=== PATIENT | male | born 1990 | race Caucasian/White ===

== ENCOUNTER 2020-08-03 11:11 | Observation (INO) | payer BC, SELFPAY ==
[2020-08-03] VITALS (12 sets, daily range): BP systolic 114–158; BP diastolic 62–103; PULSE 77–112; RESP 16–18; TEMP 36.5–37.7; O2SAT 92–99; BMI 35.7
[2020-08-03] MEDS: Lactated Ringers 1,000 ML 100 ML IV ×3 (06:48→14:35)
--- NOTE | 2020-08-03 07:37 | RAD_ITS ---
STUDY: X-RAY - LEFT ANKLE REASON FOR EXAM: Male, 30 years old. GASTROCNEMIUS RECESSION, SUBTALAR JOINT FUSION TECHNIQUE: 3 view(s) of the ankle. COMPARISON: None. FINDINGS: Intraoperative imaging provided for gastrocnemius recession and subtalar joint fusion. RAD/Ankle min 3 Views IMPRESSION: Intraoperative imaging provided for gastrocnemius recession and subtalar joint fusion. Electronically Signed: Jesus Ortega, at 12:39 EDT , Service support ,
[2020-08-03] MEDS: Cefazolin 2 GM in 0.9% Normal Saline 100 ML IV ×3 (07:44→21:00)
--- NOTE | 2020-08-03 11:20 | HP.PCM_ITS ---
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 The patient is a 30 year old M with past medical history of seasonal allergies and hypertension who suffers continued pain in his left foot and ankle with acti vity. Patient has been following up with me in the office 4 months to help control this pain. Multiple imaging studies were performed, revealing significant osteoarthritis in the area of his subtalar joints. This is where the chief complaint is. Painful range of motion of the subtalar joint on the left lower extremity was had with restricted motion. Fluid motion of the right subtalar joint with no pain is present. Multiple conservative therapies were employed and failed, including use of supportive inserts, change in shoe gear, cortisone injections, physical therapy, oral medications. The conservative therapies that were initiated failed. Patient has attempted to go on vacation with his family along with hiking, and was unable to perform the activities that he desired due to the pain. After multiple discussions were had with the patient, along with the patient performing his own research, it was decided that a left subtalar joint fusion along with a left gastrocnemius recession would be performed. Surgery was performed today, August 03, 2020. Patient will be admitted for observation status for pain control and to aid in his recovery. [] Past Medical History Past Medical History (Chronic Problems): Chronic Problems (Last Updated 08/03/20 @ 11:[address] Kendrick Hamm DPM) Primary osteoarthritis, left ankle and foot (Chronic) Acquired deformity of left ankle and foot (Chronic) Medical History: Medical History (Last Updated 08/03/20 @ 11:[address] Kendrick Hamm DPM) Arthritis M19.90 Psoriasis L40.9 Seasonal allergies J30.2 Hypertension I10 Allergies No Known Allergies Allergy (Verified 08/03/20 06:35) Home Medications: Ambulatory Orders Medication Instructions Recorded Loratadine [Claritin] 10 mg PO DAILY 07/20/20 Losartan/Hydrochlorothiazide 1 ea PO DAILY 07/20/20 [Losartan-Hctz 100-25 mg Tab] Surgical History: no surgical history Psychiatric History: No pertinent psych hx Lives: With Family Smoking Status: Former smoker Tobacco Use: Non-smoker Alcohol: Occasional Drugs: None Review of Systems Constitutional: Denies: Anorexia, Chills, Fever, Night Sweats Eyes: Denies: Blurred vision, Cataracts, Conjunctivae Inflammation HEENT: Denies: Difficulty Hearing, Difficulty Swallowing, Dysphasia, Ear Pain, Eye Pain, Hard of Hearing Cardiovascular: Denies: Chest Pain, Claudication, Chest Pressure, Chest Tightness Respiratory: Denies: Cough, Hemoptysis, Pleuritic Pain, Shortness of Breath, Shortness of breath at rest, Shortness of breath upon exertion Gastrointestinal: Denies: Abdominal Pain, Constipation, Diarrhea, Dyspepsia Genitourinary: Denies: Dysuria, Frequency, Hematuria Musculoskeletal: Reports: Foot Pain - left foot pain during activities Skin: Denies: Dryness, Jaundice Neurological: Denies: Balance problems, Blurred vision, Double vision Psychiatric: Denies: Anxiety, Depression Endocrine: Denies: Change in Body Habitus, Heat/ Cold Intolerance, Polydipsia, Polyuria Hematologic/ Lymphatic: Denies: Adenopathy, Anemia, Easy Bruising, Easy Bleeding VTE Information - Inpt Only VTE Present on Admission: No VTE Mechan Device Prophylaxis: SCD's VTE Pharm Prophylaxis ordered?: Yes Subjective: Patient seen at bedside postoperatively. Patient mitts to pain of his left foot, but is well controlled. Patient denies any other acute complaints at this time. Currently, patient denies fever, chills, nausea, vomiting, shortness of breath, chest pain. Patient denies left calf pain. Objective: Lower extremity physical exam: Focused on the left lower extremity, reveals a dressing that is clean, dry, intact the left lower extremity. Vascular: Capillary fill time is less than 3 seconds to all digits of the left foot. Temperature gradient is within normal limits of the left lower extremity. Neurological exam: Gross and protective sensation are intact to the left lower extremity this time Musculoskeletal: Muscle strength is deferred at this time. Foot and ankle appear in a rectus position underneath the tibia at this time. Dermatological exam: Deferred at this time. No evidence of open lesions noted in areas that is not covered with a dressing. - Physical Exam Vitals/I&O's: Vital Signs Temp Pulse Resp BP Pulse Ox 99.7 F H 91 16 158/97 H 97 08/03/20 06:43 08/03/20 06:43 08/03/20 06:43 08/03/20 06:43 08/03/20 06:43 Oxygen Delivery Method Room Air Weight: 113 kg Body Mass Index (BMI) 35.7 Intake and Output for Last 24 Hours 08/01/20 08/02/20 08/03/20 23:59 23:59 23:59 Intake Total 110 / 110 Balance 110 / 110 General: Oriented x3, Cooperative, No apparent distress HEENT: Atraumatic, PERRLA Oral: Moist Mucosa, No Gingival or Mucosal Lesions/ Ulcerations Neck: Supple, No JVD Lungs: Clear to auscultation, Normal air movement, No rhonchi, No wheeze, No rales Cardiovascular: Regular rate, Regular Rhythm, Normal S1, Normal S2 Abdomen: Bowel Sounds Present, Soft, Non Tender, Non-Distended Extremities: No clubbing, No cyanosis, Capillary Refill Less than 3 Seconds, No Calf Tenderness, Peripheral Pulses Normal Musculoskeletal: No Tenderness to Palpation of Joints or Extremities Neurological: Sensory exam intact to light touch and pain Psych/Mental Status: Alert and oriented to time, place, person, mood and affect Current Medications Lactated Ringer's () 1,000 mls @ 100 mls/hr IV .Q10H JANETTE Last Admin: 08/03/20 06:48 Dose: 100 mls/hr Documented by: Assessment/Plan Assessment: This is a 30-year-old male who had significant ambulatory difficulty and pain secondary to osteoarthritis who is status post a left lower extremity gastrocnemius recession and left subtalar joint fusion. Plan: Patient chart reviewed and patient evaluated. Full discussion had with that with the patient about the patient's current clinical condition. At this time, I discussed with the patient that would like to admit him to observational status to make sure that he has his pain well controlled and to aid in his recovery. Patient was agreeable to this. Patient will be admitted to the med-surg floor and will be started on pain medication to aid in his recovery. Broad-spectrum antibiotics will be continued at this time to decrease the chance of infection. DVT prophylaxis was ordered, to begin tomorrow, August 04. Patient is normal pain medication was started. A diet was given to the patient. Patient is to remain nonweightbearing to the left lower extremity at this time with assistive devices. Patient is to keep the dressing clean, dry, intact to the left lower extremity. It is important that the patient elevates his left foot above the level of heart at all times. It is important that the patient ice around his left knee 30 minutes every hour to help control his pain. I will assess the patient once again tomorrow morning. If patient feels that he is able to go home and his pain is well controlled, will discharge patient. Patient is postoperative prescriptions were already given to him and he has them filled waiting for him at home. Patient at home normal prescriptions were restarted as well. Procedure Criteria Procedure Type: Elective COVID Risk Discussion: The surgeon/proceduralist and patient have discussed in detail the risk of exposure to and/or potential harm posed by the COVID-19 virus with having a surgery/procedure at this time versus the risk of delaying the surgery/procedure. It is not possible to know either the risk of delaying the surgery or procedure or chance of getting an infection with perfect accuracy, but a joint decision was made between the patient and the surgeon/proceduralist to proceed at this time with the scheduled surgery/procedure as indicated on the consent form. OBSV E&M: 39112 Initial observation care L2
[2020-08-03] MEDS: Bupivacaine Mpf 0.5% 30 ML VIAL (11:28)
--- NOTE | 2020-08-03 11:34 | OP.PCM_ITS ---
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 Left foot and ankle primary osteoarthritis. 2. Left foot acquired foot deformity. 3. Left short and Achilles tendon Post-Operative Diagnosis: Same as preoperative Surgery/Procedure Performed:: 1. Left subtalar joint fusion. 2. Left gastrocnemius recession. 3. Left foot application of bone graft Description of Surgical Findings:: Consistent with diagnosis. Increase in the dorsiflexor component noted of the left foot at the level of the ankle joint status post gastrocnemius recession. Compression of the joint space had with the foot placed in approximately 5 degrees valgus after internal fixation was placed. Internal fixation held the foot in the corrected reduced position. solar mechanical engineer: Ana Garcia NP Type of Anesthesia:: General/Regional - with a popliteal block given to the left lower extremity Anesthesiologist: Sukumar Mcfadden Special Medications: 2 grams of ancef given pre-operatively Specimen's removed: None Drains: None Estimated Blood Loss (mL): 50mL Description of Procedure: Hemostasis: Pneumatic thigh tourniquet placed to the level of the left thigh at 300 mmHg for 14 minutes. This was deflated for a period of over 20 minutes. This was then reinflated at the level of the left thigh at 250 mmHg for 120 minutes. Materials: #1. Size 2-0 Vicryl. 2. Size 3-0 Vicryl. 4. Size 3-0 nylon. 5. Size 2-0 nylon. 6. Lizbeth 6.5 x 85 mm partially-threaded cannulated screw. 7. Waycross 6.5 x 90 mm partially-threaded cannulated screw. 8. Lizbeth Vitoss Injectables: 5 mL of 0.5 the Marcaine plain given in a proximal saphenous nerve block fashion postoperatively Complications: None Condition: Stable Indications: Patient is a 30-year-old male with past medical history significant of arthritis, hypertension, psoriasis, who was suffering significant left foot and ankle pain for years . Patient has been following up with me for months to help him alleviate his symptoms. Multiple conservative therapies were employed, including but not limited to cortisone injections, supportive inserts, change in shoe gear, physical therapy. All of these conservative measures failed. Patient attempted to go on multiple vacations with his family, but was not able to participate in the activities due to the pain that was present. Patient states that this is limiting his activities of daily living, and wanted to discuss further options. Multiple imaging studies were performed, including x-rays and MRI. This revealed significant arthritis in the subtalar joint. Clinical examination revealed a significant restriction of the subtalar joint on the left side when compared to the contralateral side. Furthermore, inversion and eversion of the left subtalar joint was painful. There is limitation of movement on the left subtalar joint when compared to the contralateral side. Advanced imaging did not reveal a tarsal coalition. Furthermore, patient did have a short Achilles tendon, likely aiding in his symptoms. I discussed with the patient the surgical intervention at that time, including a gastrocnemius recession to help lengthen the posterior musculature along with a subtalar joint fusion. I discussed the risks and benefits of surgical intervention, including but not limited to delayed or nonhealing wounds, delayed or nonhealing bone, DVT, infection, decreased function of limb, continued pain, continued limitation activities, loss of limb, loss of life. All the patient's questions were answered to his satisfaction and all of his concerns were addressed. No guarantees were made as to the outcome of the procedure. Patient understood all aspects of the procedure, and wanted to proceed with the proposed surgical intervention for today, August 03, 2020. Operative report: Before the patient was brought into the operating room, the risks, benefits, possible outcomes, possible complications of the procedure were discussed with the patient once again. These include but not limited to delayed or nonhealing wounds, delayed or nonhealing bone, DVT, infection, decreased function of limb, continued pain, continued limitation activities, loss of limb, loss of life. All the patient's questions were answered to his satisfaction and all of his concerns were addressed. No guarantees were made as to the outcome of the procedure. Patient understood all aspects of the procedure, and consent was then signed by the patient. Patient was then brought into the operating room and placed on the operating table in a supine position. After timeout, general anesthesia was obtained, and anesthesia took control of the airway and the IV access. Adequate padding was placed in all pressure points. An ipsilateral hip bump was placed. The contralateral limb was taped to the bed. Next, a well- padded pneumatic thigh tourniquet was placed at the level of left thigh. Next the anesthesiologist administered a popliteal block to the left lower extremity. At this time the left foot, ankle, leg were then scrubbed, prepped, draped in the usual sterile manner. Elevation of the left lower extremity was followed by exsanguination via Esmarch and inflation of the pneumatic thigh tourniquet to 300 mmHg. At this time, the Silverskiold test was performed with the knee extended and the knee flexed. Decreased in the dorsiflexory component was noted, and the equinus deformity was confirmed of the left lower extremity. Attention was then directed to the posterior aspect of the left leg and the area of the gastrocnemius muscle belly. At this time, the inferior border of the medial gastrocnemius head was palpated and marked. A distance of 3 cm distal to this inferior border of the medial head was measured. A marking was made at the midline of the posterior leg in the area of the 3 cm distal to the medial gastrocnemius head. At this time, a #15 blade was used to perform a linear longitudinal incision starting at this 3 cm marking extending distally approximately 3 cm. This was linear in fashion. This incision was deepened utilizing blunt dissection. Care was taken to retract all vital neural and vascular structures. All bleeders were cauterized and ligated as necessary. Next, the sural nerve along with the small saphenous vein were identified, protected, and retracted. At this time, the gastrocnemius aponeurosis was identified. Next, a tongue in groove gastrocnemius recession was performed with the base of the tongue proximally and the tip of the tongue distally. The central band containing the tongue was approximately one third the entire width of the gastrocnemius aponeurosis. Care was taken to make sure that the foot was held in a forced dorsiflexed position as the gastrocnemius recession was performed. The distal portion of the tongue was then reapproximated and coapted to the distal gastrocnemius aponeurosis utilizing size 3-0 Vicryl. The Silverskiold test was then performed again, revealing a significant increase in the dorsiflexor component of the foot at the level of the ankle with the knee extended and the knee flexed. At this time, the deeper subcutaneous tissues were reapproximated and coapted utilizing size 2-0 Vicryl. Next, the pneumatic thigh tourniquet was then released and a prompt hyperemic response noted to the entirety of the left lower extremity. All bleeders were cauterized and ligated as necessary. The subcutaneous tissues were then reapproximated and coapted utilizing size 3-0 Vicryl. The skin was reapproximated coapted utilizing size 3-0 nylon in a simple interrupted and horizontal mattress fashion. At this time, radiographic evaluation was performed to determine the inferior aspect of the fibula and the distal tip of the lateral malleolus, lateral aspect of the subtalar joint, and base of the fourth metatarsal. These were then marked on the patient. Next, elevation of the left lower extremity was followed by exsanguination via Esmarch and inflation of the pneumatic thigh tourniquet was performed to 250 mmHg. Attention was then directed back to the lateral aspect of the left subtalar joint. At this time, a curvy linear incision was made starting 1 cm distal to the posterior inferior aspect of the lateral malleolus extending distally to an area just proximal to the base of the fourth metatarsal. This incision was approximately 8 cm in length and was performed in the lateral aspect of the subtalar joint. This incision was deepened utilizing sharp and blunt dissection. Care was taken to retract all vital neural and vascular structures. All bleeders were cauterized and ligated as necessary. The sural nerve was identified and retracted. At this time, a linear incision was made through the peroneal tendon sheath and in way to protect the peroneal tendons. The peroneal tendons were then retracted inferiorly. Next, the extensor digitorum brevis muscle belly was identified at its origin and sharply reflected superiorly. Next, a 15 blade was used to incise the lateral aspect of the subtalar joint capsule. The calcaneal fibular ligament was identified, retracted and protected. At this time, visual inspection was then performed of the subtalar joint in question. The talocalcaneal ligaments that were present were sharply incised. Significant degenerative joint disease was noted in the posterior facet of the calcaneus and the posterior facet of the talus. Next, a Hinterman retractor was used to distract the joint. At this time, curettes, osteotomes, and rongeurs were used to resect the cartilage on the posterior and middle facets of both the talus and the calcaneus at the subtalar joint. Care was taken to make sure that adequate resection of the cartilage was had, while keeping the subchondral bone intact. Once adequate resection of the cartilage was performed, the surgical site was irrigated with copious amounts of normal sterile saline. Next, visual inspection was then performed of the joint again, and it was determined that adequate resection was had. At this time, an osteotome with a mallet was used to fish scale the subtalar joint and the posterior and middle facets of the calcaneus and the talus. Next, a 2.5 drill bit was used to perform subchondral drilling in these joints. Once adequate preparation of the subtalar joint was had, the Waycross Vitoss was prepared in normal sterile saline and placed into the subtalar joint to aid in the fusion of this joint. At this time, with the subtalar joint held in a 5 degrees valgus position, the K wires for the Waycross cannulated screws were placed from the posterior inferior aspect of the calcaneus extending superiorly and anteriorly into the talar body and talar neck. 2 K wires were inserted in this fashion. Care was taken make sure that these 2 K wires were not perfectly parallel to aid in multiple points and multiple angles of compression. Multiple radiographic views were performed to determine the positioning of the K wires, including lateral ankle, AP ankle, oblique ankle, and calcaneal axial views. The K wires are noted to be well contained within the calcaneus and the talus, and did not penetrate any of the medial and lateral cortices of these bones. Furthermore, the K wires were not noted to penetrate into the ankle joint. Once adequate positioning of these K wires were performed, the skin at the level of where the K wires were inserted was incised via a #15 blade. Blunt dissection was continued down deep to the level of the calcaneus. Next, adequate drilling was performed in standard fashion of these K wires. These K wires were then measured, and a Lizbeth 6.5 x 90 mm and Lizbeth 6.5 x 85 mm were placed over the K wires and inserted in standard AO fixation. Of note during insertion of the screws was the adequate compression of the subtalar joint. Furthermore, care was taken make sure that the subtalar joint was held in this 5 degrees valgus position as the screws were fully inserted. Once her screws were fully inserted, and adequate compression was had the subtalar joint, all temporary fixation was then removed. Radiographic evaluation was then performed. The screws noted to be well contained within the body of the talus and the body of the calcaneus. Furthermore, the screws are noted to either be too long or too short. The screws noted to hold the subtalar joint in the correct the reduced position. They did not penetrate any of the medial or lateral cortices. The screw heads were noted to not be too prominent and were in an area that avoided the weightbearing surface of the calcaneus. The lateral and the posterior surgical site of the foot were then irrigated with copious amounts normal sterile saline. The posterior inferior calcaneal surgical site at the area of the insertion of the screws was reapproximated and coapted with a size 2-0 Vicryl for the subcutaneous tissue and a size 2-0 nylon for the skin in a simple interrupted fashion. At this time, the pneumatic thigh tourniquet was then released, and a prompt hyperemic response noted the entirety of the left lower extremity. All bleeders were cauterized and ligated as necessary of the lateral surgical site. The peroneal tendon sheath along with the origin of the extensor digitorum brevis muscle belly was reapproximated and coapted utilizing size 2-0 Vicryl. The subcutaneous tissues were reapproximated coapted of his lateral surgical site via 2-0 Vicryl and 3-0 Vicryl. The skin was reapproximated and coapted utilizing size 3-0 nylon in a simple interrupted and horizontal mattress fashion. Next, 5 mL of 0.5 some Marcaine plain was distributed a proximal saphenous nerve block fashion in the area of the tibial tuberosity. Each surgical site was then dressed with Betadine soaked gauze, and a dry sterile dressing consisting of 4 x 4 gauze, ABD pads, wrapped with Kerlix. The left foot and ankle were then wrapped with an Theo bandage. Next, a stockinette was placed over the left lower extremity. Cast padding was wrapped from the metatarsal heads extending proximally to a level just distal to the tibial tuberosity. A posterior splint was fashioned to the left lower extremity and was adhered to the left lower extremity utilizing Theo bandages. Care was taken to make sure that the foot and ankle were held in a slightly dorsiflexed and slightly everted position as the posterior splint dried to decrease the chance of scarring of the gastrocnemius recession and decrease the tension on the lateral surgical site. Neurovascular status was assessed at the end of the application and deemed intact to the left lower extremity. The patient tolerated the anesthesia and the procedure well and was transported to the PACU with vital signs stable and neurovascular status intact to the left lower extremity. After period of postoperative monitoring, patient will be admitted for observation for pain control with likely discharge tomorrow, August 04, 2020. The surgical endoscopist, the nurse practitioner, was utilized throughout the entire procedure. She helped with patient positioning, holding of limb, holding retractors. She helped with exposure throughout. She helped with bandage application, and cast application. Without the surgical endoscopist, surgical time would have been increased and surgical outcome could have been less optimal. - Complications None - Admit VTE Documentation VTE Present on Admission: No VTE Mechan Device Prophylaxis: SCD's VTE Pharm Prophylaxis ordered?: Yes
--- NOTE | 2020-08-03 11:54 | RAD_ITS ---
STUDY: X-RAY - LEFT ANKLE REASON FOR EXAM: Male, 30 years old. POST OP, GASTROCNEMIUS RECESSION, SUBTALAR JOINT FUSION TECHNIQUE: 3 view(s) of the ankle. COMPARISON: Comparison is made with prior study done earlier today. FINDINGS: There is evidence of fusion of the subtalar joint utilizing 2 metallic screws. RAD/Ankle min 3 Views IMPRESSION: Subtalar joint fusion. Electronically Signed: Jesus Ortega, at 12:39 EDT , Service support ,
--- NOTE | 2020-08-03 12:08 | PCM.DC.ORTHO ---
Discharge Diet: No Restrictions Discharge Activity: May Not Drive, May Not Shower, Use Walker, Use Crutches Weight Bearing Status: No weight bearing Keep extremity elevated above heart level: Left Leg Additional Activity Instructions:: 1. Keep dressing to left leg clean, dry, intact. Do not get dressing wet. Do not remove dressing. If get dressing wet, call office for further instructions. I recommend sponge bathing at this time to avoid getting dressing wet. 2. Ice around the left knee 20 minutes on, 20 minutes off, every hour while awake until follow-up appointment. 3. Elevate left foot above level of heart as often as possible until further instructed. 4. No walking, standing, placing any weight or pressure on left foot. Use walker/crutches/knee scooter for assistance. 5. Begin taking doxycycline (antibiotic) twice a day as instructed on August 04, 2020. This medication must be taken. 6. Begin taking aspirin once a day as instructed beginning August 04, 2020. This medication must be taken. 7. Begin taking oxycodone/acetaminophen (percocet, pain medication) as needed. You can supplement this medication with extra strength Tylenol as needed. You are to not exceed 3000 mg of Tylenol in a 24-hour period. #8. Follow-up in the office in 1 week as scheduled. Call your doctor if your incision/area has: Sudden Increased Bleeding, Increased Pain/ Swelling Call your doctor if you observe: Fever of 101 or Higher, Coldness, Increased Pain, Inability to have a bowel movement, Shortness of breath, Chest pain, Increased palpitations (irregular heartbeat), Calf discomfort, Uncontrolled pain Cleanse incision/area with: Keep Dressing Clean & Dry Allergies/Adverse Reactions: Allergies No Known Allergies Allergy (Verified 08/03/20 06:35) Medications to take at Discharge Loratadine [Claritin] 10 mg PO DAILY 07/20/20 Losartan/Hydrochlorothiazide [Losartan-Hctz 100-25 mg Tab] 1 ea PO DAILY 07/20/20 Primary Care Physician: Magalys Fernández NP, PROFESSOR OF RADIOLOGY-C [Primary Care Provider] - Test Results: Test results from this visit will be discussed in further detail at your follow-up appointment, if applicable. Please Follow Up With: Kendrick Hamm DPM When: on 08/09/2020 in [facility] Proposed Discharge Date: 08/04/20
[2020-08-04 01:22] VITALS: BP 126/72; PULSE 78; RESP 17; TEMP 36.8; O2SAT 98
[2020-08-04] MEDS: Lactated Ringers 1,000 ML 100 ML IV (02:24)
[2020-08-04] MEDS: Enoxaparin 40 MG/0.4 ML Syringe SC (05:41)
[2020-08-04] MEDS: Cefazolin 2 GM in 0.9% Normal Saline 100 ML IV (05:41)
[2020-08-04 05:45] VITALS: BP 126/84; PULSE 75; RESP 16; TEMP 36.9; O2SAT 99
[2020-08-04] MEDS: HYDROcodone Bitartrate/Apap 5/325 Tablet PO (07:10)
--- NOTE | 2020-08-04 07:35 | PCM.DC.SUM ---
Discharge Date and Diagnosis Date of Admission: 08/03/20 Date of Discharge: 08/04/20 - Secondary Discharge Diagnosis Chronic Problems: Chronic Problems (Last Updated 08/03/20 @ 11:[address] 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 POST OP, GASTROCNEMIUS RECESSION, SUBTALAR JOINT FUSION TECHNIQUE: 3 view(s) of the ankle. COMPARISON: Comparison is made with prior study done earlier today. FINDINGS: There is evidence of fusion of the subtalar joint utilizing 2 metallic screws. RAD/Ankle min 3 Views IMPRESSION: Subtalar joint fusion. Electronically Signed: Jesus Ortega, at 12:39 EDT , Service support , Operations: - - Left subtalar joint fusion, left gastrocnemius recession Procedures: None Summary of Care Provided: The patient is a 30 year old M who has been following up with me as an outpatient for left foot and ankle pain. Patient was diagnosed with subtalar joint arthritis along with equinus. This was limiting his activities of daily living. This was confirmed upon radiographic evaluation. After multiple conservative therapies were employed and failed, it was determined that surgical intervention will be performed to help alleviate his symptoms. Surgical intervention was performed yesterday, August 03, 2020. This is a left subtalar joint fusion along with a left gastrocnemius recession. Patient tolerated procedure well without complaints or complications. Patient was admitted to observation status for pain control. After seeing patient at bedside today, he admits to pain that is well controlled with medications. Overall, patient is feeling well, and feels like he is able to go home without any hindrance. Patient denies any other acute complaints at this time. No acute events overnight reported by nursing staff. Currently, patient denies fever, chills, nausea, vomiting, shortness of breath, chest pain. Patient denies left calf pain. I discussed the surgical intervention in detail with the patient. All the patient's questions were answered to satisfaction and all of his concerns were addressed. I encouraged the patient to call me with any questions or concerns after discharge from the hospital. I gave patient explicit instructions on postoperative care at this time until follow-up appointment. Patient will be discharged home with discharge instructions and follow-up with me in the office in 1 week for further postoperative care. [] Subjective: Seen at bedside resting comfortably. Patient admits to mild pain of the left lower extremity, well controlled by medications. Overall, patient denies any acute complaints at this time. No acute events reported overnight by nursing staff. Currently, patient denies fever, chills, nausea, vomiting, shortness of breath, chest pain. Patient denies left calf pain. Objective: Lower Extremity physical exam focused on the left lower extremity: Dressing is clean, dry, intact to the left lower extremity. No evidence of dishevelment noted. Capillary fill time is less than 3 seconds to all digits of the left foot. Gross and protective sensation is intact to the left lower extremity at this time. Patient is able to freely move digits of the left foot at this time with no evidence of pain or hindrance. Muscle strength testing was deferred at this time. Foot and ankle appear in a rectus position underneath the tibia at this time. - Physical Exam Vitals/I&O's: Vital Signs Temp Pulse Resp BP Pulse Ox 98.5 F 75 16 126/84 H 99 08/04/20 05:45 08/04/20 05:45 08/04/20 05:45 08/04/20 05:45 08/04/20 05:45 Oxygen Flow Rate (L/min) 6 Oxygen Delivery Method Room Air Weight: 113 kg Body Mass Index (BMI) 35.7 Intake and Output for Last 24 Hours 08/02/20 08/03/20 08/04/20 23:59 23:59 23:59 Intake Total 2651.66 / 2651.66 1375.00 / 1375.00 Balance 2651.66 / 2651.66 1375.00 / 1375.00 General: Alert, Oriented x3, Cooperative, No apparent distress HEENT: Atraumatic, PERRLA Oral: Moist Mucosa Neck: Supple, No JVD Lungs: Clear to auscultation, Normal air movement, No rhonchi, No wheeze, No rales Cardiovascular: Regular rate, Regular Rhythm, Normal S1, Normal S2 Abdomen: Bowel Sounds Present, Soft, Non Tender, Non-Distended Extremities: No clubbing, No cyanosis, Capillary Refill Less than 3 Seconds, No Calf Tenderness Musculoskeletal: No Tenderness to Palpation of Joints or Extremities Neurological: Sensory exam intact to light touch and pain Psych/Mental Status: Alert and oriented to time, place, person, mood and affect Current Medications Acetaminophen (Tylenol) 650 mg PO Q4H PRN PRN PRN Reason: Pain or Fever Hydrocodone Bitart/Acetaminophen ([place] 5mg-325mg) 1 - 2 tablet PO Q6H PRN PRN PRN Reason: Pain Score 1-5/10 Last Admin: 08/04/20 07:10 Dose: 2 tablet Documented by: Docusate Sodium (Colace) 100 mg PO BID PRN PRN PRN Reason: CONSTIPATION Enoxaparin Sodium (Lovenox) 40 mg SC DAILY@0600 [facility] Last Admin: 08/04/20 05:41 Dose: 40 mg Documented by: Hydrochlorothiazide (Hctz) 25 mg PO DAILY [facility] Hydromorphone HCl (Dilaudid Inj) 1 mg IV Q2H PRN PRN PRN Reason: Pain Score 6-10/10 Lactated Ringer's () 1,000 mls @ 100 mls/hr IV .Q10H [facility] Last Infusion: 08/04/20 06:25 Dose: 100 mls/hr Documented by: Cefazolin Sodium 2 gm/ Sodium (Chloride) 110 mls @ 150 mls/hr IV Q8 [facility] Last Infusion: 08/04/20 06:25 Dose: Infused Documented by: Sodium Chloride () 250 mls @ 15 mls/hr IV .[id number] PRN PRN Reason: Saline Flush Sodium Chloride () 250 mls @ 15 mls/hr IV .[id number] PRN PRN Reason: Additional IVPB Infusion Loratadine (Claritin) 10 mg PO DAILY [facility] Losartan Potassium (Cozaar) 100 mg PO DAILY [facility] Ondansetron HCl (Zofran) 4 mg IV Q6H PRN PRN PRN Reason: NAUSEA/VOMITING Oxycodone HCl (Oxyir) 5 mg PO Q6H PRN PRN PRN Reason: Pain Score 6-10/10 Promethazine HCl (Phenergan) 25 mg IM Q8H PRN PRN PRN Reason: Nausea/vomiting Sodium Chloride () 10 - 40 ml IV UD PRN PRN Reason: SALINE FLUSH Discharge Diet: No Restrictions Discharge Activity: May Not Drive, May Not Shower, Use Walker, Use Crutches Weight Bearing Status: No weight bearing Keep extremity elevated above heart level: Left Leg Additional Activity Instructions:: 1. Keep dressing to left leg clean, dry, intact. Do not get dressing wet. Do not remove dressing. If get dressing wet, call office for further instructions. I recommend sponge bathing at this time to avoid getting dressing wet. 2. Ice around the left knee 20 minutes on, 20 minutes off, every hour while awake until follow-up appointment. 3. Elevate left foot above level of heart as often as possible until further instructed. 4. No walking, standing, placing any weight or pressure on left foot. Use walker/crutches/knee scooter for assistance. 5. Begin taking doxycycline (antibiotic) twice a day as instructed on August 04, 2020. This medication must be taken. 6. Begin taking aspirin once a day as instructed beginning August 04, 2020. This medication must be taken. 7. Begin taking oxycodone/acetaminophen (percocet, pain medication) as needed. You can supplement this medication with extra strength Tylenol as needed. You are to not exceed 3000 mg of Tylenol in a 24-hour period. #8. Follow-up in the office in 1 week as scheduled. Call your doctor if your incision/area has: Sudden Increased Bleeding, Increased Pain/ Swelling Call your doctor if you observe: Fever of 101 or Higher, Coldness, Increased Pain, Inability to have a bowel movement, Shortness of breath, Chest pain, Increased palpitations (irregular heartbeat), Calf discomfort, Uncontrolled pain Cleanse incision/area with: Keep Dressing Clean & Dry Home Medications: Medications to take at Discharge Loratadine [Claritin] 10 mg PO DAILY 07/20/20 Losartan/Hydrochlorothiazide [Losartan-Hctz 100-25 mg Tab] 1 ea PO DAILY 07/20/20 Primary Care Physician: Magalys Fernández [employer], [employer] [Primary Care Provider] - Please Follow Up With: Kendrick Hamm DPM When: on 08/09/2020 in [place] Office Disposition: Home Minutes spent on discharge:: 30 Patient Condition:: Good Medical Necessity - Tobacco Use Smoking Status: Former smoker Tobacco Use: Non-smoker Meaningful Use Info Meaningful Use Diagnoses (Choose all that apply): None applicable OBSV E&M: [id number] Subsequent observation care L2
[2020-08-04 07:52] VITALS: BP 142/69; PULSE 76; RESP 18; TEMP 36.8; O2SAT 99
[2020-08-04] MEDS: Losartan Potassium 100 MG Tablet PO (08:38)
[2020-08-04] MEDS: Loratadine 10 MG Tablet PO (08:39)
[2020-08-04] MEDS: hydroCHLOROthiazide 25 MG Tablet PO (08:39)
[2020-08-04] MEDS: oxyCODONE 5 MG Tablet PO (08:50)
--- NOTE | 2020-08-04 09:01 | NURSING ---
pt verbalized oxyir had not kicked in but wanting to go home. discussed pain medications after discharge and monitoring with narcotics
== END 2020-08-04 08:56 | disposition home or self-care (01) ==
LOC: SDC 12:14 → MS3 12:14
PROVIDERS: Anesthesiology; Admitting Provider Podiatrist Foot & Ankle Surgery; PCP Nurse Practitioner Family; Referring Provider Podiatrist Foot & Ankle Surgery; Visit Provider Podiatrist Foot & Ankle Surgery
DX: M19.072 Primary osteoarthritis, left ankle and foot (principal); M21.6X2 Other acquired deformities of left foot; Z11.59 Encounter for screening for other viral diseases; I10 Essential (primary) hypertension; L40.9 Psoriasis, unspecified; M67.02 Short Achilles tendon (acquired), left ankle; Z79.899 Other long term (current) drug therapy; Z87.891 Personal history of nicotine dependence
CPT/HCPCS: 01480; 27687; 28725; 64445; 73610; 76000; 87635; 94799; 96361; 96365; 96366; 96372; 97161; 97530; 99218; C1713; J7120; C1769; G0378; G0379; J2405; U0003